=== PATIENT | female | born 1985 | race Caucasian/White ===

== ENCOUNTER 2017-08-19 19:24 | Emergency (ER) | payer OTHER, MEDICAID ==
[~2017-08-19] VITALS: Ht 152.4 cm; Wt 86.2 kg
[~2017-08-19 19:24] MED LIST: AUGMENTIN 875-1 EACH PO; IBUPROFEN 600600 M1 PO; XANAX 0.25 MG0.25 MG; ZOLOFT 50 MG TA50 M1
[2017-08-19] MEDS ORDERED: KEFLEX500 M1 (20:20)
[2017-08-19] MEDS ORDERED: BACTRIM DS TAB1 EACH PO (21:08)
[2017-08-19] MEDS ORDERED: CLOTRIMAZOLE 1%15 G1 TOP (21:08)
[2017-08-19] MEDS ORDERED: DIFLUCAN150 MG PO (21:08)
[2017-08-19] MEDS ORDERED: PREDNISONE50 MG PO (21:08)
[2017-08-19 21:35] VITALS: BP 112/70
== END 2017-08-19 22:03 | disposition home or self-care (01) ==
LOC: M.ERS 19:24
DX: B35.4 Tinea corporis (principal); T78.49XA Other allergy, initial encounter; X58.XXXA Exposure to other specified factors, initial encounter

== ENCOUNTER 2018-07-28 12:52 | Emergency (ER) | payer OTHER, MEDICAID ==
[~2018-07-28] VITALS: Ht 152.4 cm; Wt 88.5 kg
[~2018-07-28 12:52] MED LIST changes: +BACTRIM DS TAB1 EACH PO; +CLOTRIMAZOLE 1%15 G1 TOP; +DIFLUCAN150 MG PO; +KEFLEX500 M1; +PREDNISONE50 MG PO
[2018-07-28] MEDS ORDERED: ZOLOFT50 MG PO (13:08)
[2018-07-28] MEDS ORDERED: IBUPROFEN 400400 M2 PO (13:09)
[2018-07-28] MEDS ORDERED: MAPAP325 MG PO (13:09)
[2018-07-28] MEDS ORDERED: OXYCODONE HCL 55 MG PO (13:09)
[2018-07-28] MEDS ORDERED: PERCOCET PO (14:05)
[2018-07-28] MEDS ORDERED: ZOFRAN ODT4 MG PO (14:05)
[2018-07-28] MEDS ORDERED: KEFLEX500 M1 PO (14:11)
[2018-07-28] MEDS ORDERED: CLINDAMYCIN HC300 MG PO (14:21)
[2018-07-28 14:51] VITALS: BP 114/65
== END 2018-07-28 14:55 | disposition home or self-care (01) ==
LOC: M.ERS 12:52
DX: G89.18 Other acute postprocedural pain (principal); R11.2 Nausea with vomiting, unspecified; Z88.1 Allergy status to other antibiotic agents; Z90.89 Acquired absence of other organs

== ENCOUNTER 2019-05-05 17:26 | Emergency (ER) | payer OTHER, MEDICAID ==
[~2019-05-05] VITALS: Ht 154.9 cm; Wt 90.7 kg
[~2019-05-05 17:26] MED LIST changes: +CARAFATE1 GM/10 ML PO; +CLINDAMYCIN HC300 MG PO; +IBUPROFEN 400400 M2 PO; +KEFLEX500 M1 PO; +MAPAP325 MG PO; +ONDANSETRON HCL4 M2 PO; +OXYCODONE HCL 55 MG PO; +PERCOCET PO; +TRAMADOL 50 MG50 MG PO; +ZOFRAN ODT4 MG PO; +ZOLOFT50 MG PO
[2019-05-05] MEDS ORDERED: VALTREX 500 MG500 MG PO (17:34)
[2019-05-05 18:49] LABS: ABSOLUTE EOSINOPHILS 0.1 thou/uL (0.0-0.7); ABSOLUTE LYMPHOCYTES 2.7 thou/uL (0.8-5.3); ABSOLUTE MONOCYTES 0.5 thou/uL (0.0-1.2); ABSOLUTE NEUTROPHILS 5.3 thou/uL (1.6-8.1); BASOPHILS 0.4 %; HEMOGLOBIN 11.4 gm/dL (12.0-15.0); LYMPHOCYTES 31.6 %; MCH 26.5 pg (26.0-34.0); MCHC 32.5 g/dL (28.0-37.0); MCV 81.6 fL (80.0-100.0); MONOCYTES 5.7 %; MPV 7.8 fl. (7.2-11.1); NUCLEATED RBCS 0 /100WBC; PLATELET COUNT* 437 thou/uL (150-400); POLYS 61.3 %; RDW-CV 14.8 % (10.5-14.5); WBC 8.7 thou/uL (4.0-11.0)
[2019-05-05 19:03] LABS: ANION GAP 8 mmol/L (7-16); BUN 9 mg/dL (7-18); CALCIUM 9.8 mg/dL (8.5-10.1); CHLORIDE 102 mmol/L (98-107); CO2 28 mmol/L (21-32); CREATININE 0.6 mg/dL (0.6-1.3); GLUCOSE 106 mg/dL (70-99); POTASSIUM 3.8 mmol/L (3.5-5.1); SODIUM 138 mmol/L (136-145)
[2019-05-05 19:15] LABS: ALBUMIN 3.6 g/dL (3.4-5.0); ALKALINE PHOSPHATASE 114 U/L (46-116); SGOT 19 U/L (15-37); SGPT 45 U/L (30-65); TOTAL BILIRUBIN < 0.1 mg/dL (<0.1-1.0); TOTAL PROTEIN 8.3 g/dL (6.4-8.2)
[2019-05-05] MEDS ORDERED: PREDNISONE50 MG PO (19:23)
[2019-05-05] MEDS ORDERED: DIPHENHIST50 MG PO (19:23)
[2019-05-05 19:39] VITALS: BP 129/70
[2019-06-08] MEDS ORDERED: DIFLUCAN150 MG PO (00:03)
[2019-06-08] MEDS ORDERED: PREDNISONE 20 M20 M1 PO (00:03)
[2019-06-08] MEDS ORDERED: ANTIFUNGAL113 GM TOP (00:03)
== END 2019-05-05 19:40 | disposition home or self-care (01) ==
LOC: M.ERS 17:26
PROVIDERS: Emergency Medicine
DX: R22.0 Localized swelling, mass and lump, head (principal); T78.40XA Allergy, unspecified, initial encounter; Z88.1 Allergy status to other antibiotic agents; Z98.51 Tubal ligation status; Z90.710 Acquired absence of both cervix and uterus; X58.XXXA Exposure to other specified factors, initial encounter

== ENCOUNTER 2019-06-08 23:33 | Emergency (ER) | payer OTHER, MEDICAID ==
[~2019-06-08] VITALS: Ht 154.9 cm; Wt 95.3 kg
[~2019-06-08 23:33] MED LIST changes: +ANTIFUNGAL113 GM TOP; +DIPHENHIST50 MG PO; +PREDNISONE 20 M20 M1 PO; +VALTREX 500 MG500 MG PO
[2019-06-08] MEDS ORDERED: XANAX 0.25 MG0.25 MG PO (23:42)
[2019-06-09 00:09] VITALS: BP 152/69
== END 2019-06-09 00:09 | disposition home or self-care (01) ==
LOC: M.ERS 23:33
DX: L50.9 Urticaria, unspecified (principal); B49 Unspecified mycosis; Z88.1 Allergy status to other antibiotic agents; Z98.51 Tubal ligation status; Z98.890 Other specified postprocedural states; Z90.710 Acquired absence of both cervix and uterus

== ENCOUNTER 2020-05-09 17:28 | Emergency (ER) | payer OTHER, MEDICAID ==
[~2020-05-09] VITALS: Ht 154.9 cm; Wt 104.3 kg
[~2020-05-09 17:28] MED LIST changes: +XANAX 0.25 MG0.25 MG PO
[2020-05-09] MEDS ORDERED: BUSPIRONE HCL10 MG PO (17:58)
[2020-05-09] MEDS ORDERED: RIZATRIPTAN5 MG PO (17:58)
[2020-05-09 18:28] LABS: INFLUENZA A ANTIGEN Negative (Negative); INFLUENZA B ANTIGEN Negative (Negative)
[2020-05-09] MEDS ORDERED: AMOXICILLIN 50500 MG PO (18:56)
[2020-05-09 19:05] VITALS: BP 132/70
== END 2020-05-09 19:05 | disposition home or self-care (01) ==
LOC: M.ERS 17:28
PROVIDERS: Nurse Practitioner Family
DX: J02.9 Acute pharyngitis, unspecified (principal); Z20.818 Contact with and (suspected) exposure to other bacterial communicable diseases; Z88.1 Allergy status to other antibiotic agents; Z90.89 Acquired absence of other organs; Z98.51 Tubal ligation status; Z90.710 Acquired absence of both cervix and uterus

== ENCOUNTER 2021-06-22 09:34 | Emergency (ER) | payer OTHER, MEDICAID ==
[~2021-06-22] VITALS: Ht 154.9 cm; Wt 98.9 kg
[~2021-06-22 09:34] MED LIST changes: +AMOXICILLIN 50500 MG PO; +BUSPIRONE HCL10 MG PO; +RIZATRIPTAN5 MG PO
[2021-06-22] MEDS ORDERED: AMOXICILLIN 50500 MG PO (10:11)
[2021-06-22] MEDS ORDERED: PERCOCET PO (10:11)
[2021-06-22 10:23] VITALS: BP 146/75
== END 2021-06-22 10:24 | disposition home or self-care (01) ==
LOC: M.ERS 09:34
DX: K04.7 Periapical abscess without sinus (principal); Z90.89 Acquired absence of other organs; Z98.51 Tubal ligation status; Z90.711 Acquired absence of uterus with remaining cervical stump